=== PATIENT | female | born 1955 | race Caucasian/White ===

== ENCOUNTER → 2023-01-20 | Outpatient (CLI) | payer MEDICARE, OTHER, SELFPAY ==
[2023-01-20 17:24] LABS: Erythrocyte Sedimentation Rate 13 mm/hr (0-30)
[2023-01-20 18:00] LABS: AST(SGOT) 37 U/L (15-37); Alanine Aminotransfer ALT/SGPT 37 U/L (13-56); Albumin, Serum 3.9 g/dL (3.2-5.0); Alkaline Phosphatase 135 U/L (45-117); Anion Gap 6 (5-15); BUN 14 mg/dL (7-18); BUN/Creat Ratio 23.4 RATIO (10-20); Calcium,Total 9.9 mg/dL (8.5-10.1); Chloride 104 mmol/L (98-107); EST Glomerular Filtration Rate 107 mL/min (>60); Est Glom Filt Rate - Afr Amer 129 mL/min (>60); Globulin 3.8 g/dL (2.2-4.2); Glucose 86 mg/dL (74-106); Potassium 3.8 mmol/L (3.5-5.1); Protein, Total 7.7 g/dL (6.4-8.2); Sodium Level 138 mmol/L (136-145)
[2023-01-23 13:07] LABS: Anti-Centromere B Ab <0.2 AI (0.0-0.9); Anti-Chromatin <0.2 AI (0.0-0.9); Anti-Jo <0.2 AI (0.0-0.9); Anti-Scleroderma-70 AB <0.2 AI (0.0-0.9); Anti-dsDNA Ab <1 IU/mL (0-9); RNP Ab <0.2 AI (0.0-0.9); SJOGREN'S Anti-SS-A test < 0.2 AI (0.0-0.9); SJOGREN'S Anti-SS-B test < 0.2 AI (0.0-0.9); Smith Ab <0.2 AI (0.0-0.9)
[2023-01-23 16:08] LABS: Endomysial Antibody IgA Negative (Negative); Immunoglobulin A 156 mg/dL (87-352); t-Transglutaminase IgA <2 U/mL (0-3)
[2023-01-26 12:09] LABS: Albumin 3.8 g/dL (2.9-4.4); Alpha-1-Globulins 0.3 g/dL (0.0-0.4); Alpha-2-Globulins 0.9 g/dL (0.4-1.0); Carcinoembryonic Antigen 3.6 ng/mL (0.0-4.7); Cytoplasmic Ab (C-ANCA) <1:20 titer (Neg:<1:20); Gamma Globulin 0.9 g/dL (0.4-1.8); Gastrin, Serum 17 pg/mL (0-115); Immunoglobulin A 155 mg/dL (87-352); Immunoglobulin E 11 IU/mL (6-495); Immunoglobulin G 791 mg/dL (586-1602); Immunoglobulin M 152 mg/dL (26-217); PROEL- TOTAL PROTEIN 6.9 g/dL (6.0-8.5); Perinuclear Ab (P-ANCA) <1:20 titer (Neg:<1:20)
== END | disposition home or self-care (01) ==
PROVIDERS: PCP Family Medicine; Referring Provider Internal Medicine Gastroenterology; Visit Provider Internal Medicine Gastroenterology
DX: K56.609 Unspecified intestinal obstruction, unspecified as to partial versus complete obstruction (principal); Z85.038 Personal history of other malignant neoplasm of large intestine
CPT/HCPCS: 36415; 80053; 82378; 82784; 82785; 82941; 83516; 84165; 85652; 86140; 86225; 86235; 86255; 86256; 86334

== ENCOUNTER → 2023-02-21 | Outpatient (CLI) | payer MEDICARE, OTHER, SELFPAY ==
--- NOTE | 2023-02-21 11:57 | MRI_ITS ---
STUDY: MR ENTEROGRAPHY WITH CONTRAST REASON FOR EXAM: Female, 67 years old. K56.609 - Unspecified intestinal obstruction, unspecified as t... TECHNIQUE: Multipulse sequence MRI performed with IV contrast according to standard MR enterography protocol following administration of oral contrast for maximal bowel distention. Images were obtained from the dome of the diaphragm to the symphysis pubis. IV clariscan 10ml was administered intravenously. TECHNICAL QUALITY: Image Quality: Satisfactory Small Bowel Distension: Adequate. COMPARISON: None. FINDINGS: Bowel: Bowel wall thickening: Absent. Skip lesions: None. Vascularity: Normal. Enhancement: Normal. Fistula: None. Abscess: None. Other Findings: The lung bases are unremarkable. The visualized portions of the heart are within normal limits Normal liver. Normal gallbladder and extrahepatic biliary system. Normal spleen. Normal pancreas. Normal bilateral adrenal glands. Normal right kidney. Normal left kidney. Normal visualized stomach. Normal colon. The appendix is not visualized. There is no evidence of bowel obstruction. No bowel masses are seen. Oral contrast opacifies the stomach and the large and small bowel loops. Normal abdominal aorta. Normal interior vena cava. Normal retroperitoneum. Normal urinary bladder. Normal abdominal wall. Unremarkable osseous structures. MRI/Enterography Abd/Pel IMPRESSION: 1. Normal MR enterography. 2. Normal visualized stomach. Normal colon. The appendix is not visualized. There is no evidence of bowel obstruction. No bowel masses are seen. Oral contrast opacifies the stomach and the large and small bowel loops. Electronically Signed: Alexander Presley MD at 15:35 EDT ,
[2023-02-21 11:58] VITALS: BP 144/61; PULSE 49; RESP 16; O2SAT 98
[2023-02-21] MEDS: Glucagon 1 MG/ML Syringe IV (14:00)
[2023-02-21 14:20] VITALS: BP 133/73; PULSE 52; RESP 16; O2SAT 98
== END | disposition home or self-care (01) ==
LOC: MRI 11:28
PROVIDERS: PCP Family Medicine; Referring Provider Internal Medicine Gastroenterology; Visit Provider Internal Medicine Gastroenterology
DX: K56.609 Unspecified intestinal obstruction, unspecified as to partial versus complete obstruction (principal); Z85.038 Personal history of other malignant neoplasm of large intestine
CPT/HCPCS: 74183; 96374; A9575; J1610

== ENCOUNTER → 2023-07-27 | Outpatient (CLI) | payer MEDICARE, OTHER, SELFPAY ==
--- NOTE | 2023-07-27 14:10 | RAD_ITS ---
EXAM: XR ABDOMEN, 1 VIEW CLINICAL INDICATION: Agile capsule TECHNIQUE: Frontal supine view of the abdomen/pelvis. COMPARISON: MR enterography, 02/21/2023. FINDINGS: LOWER THORAX: No acute pathology. INTRAPERITONEAL SPACE: No free air is identified. GASTROINTESTINAL TRACT: The capsule is in the mid to lower pelvis projecting over the region of the mid sacrum. Mild to moderate colonic stool and gas. No bowel obstruction. ORGANS: Normal as visualized. No organomegaly. No abnormal calcifications. BONES/JOINTS: [place] left scoliotic curvature of the spine and degenerative changes of the spine, SI joints, and hips. SOFT TISSUES: Surgical clip in the left hemiabdomen. RAD/Abdomen Single View IMPRESSION: 1. The capsule is in the mid to lower pelvis projecting over the region of the mid sacrum. 2. Mild to moderate colonic stool and gas. No bowel obstruction. Electronically Signed: Juan Martino DO at 20:15 EST ,
== END | disposition home or self-care (01) ==
LOC: RAD 14:05
PROVIDERS: PCP Family Medicine; Referring Provider Internal Medicine Gastroenterology; Visit Provider Internal Medicine Gastroenterology
DX: K56.609 Unspecified intestinal obstruction, unspecified as to partial versus complete obstruction (principal)
CPT/HCPCS: 74018

== ENCOUNTER → 2023-09-13 | Outpatient (CLI) | payer MEDICARE, OTHER, SELFPAY ==
--- OUTSIDE RECORDS SUMMARY | 2023-09-13 19:06 | XMS RPT_ITS | CCD ---
Author Name Unknown Address [address] [place] [address] Organization [facility] Care Team Providers Care Spinner Box Name Role Phone PAGE RENEE, DR BEN Savage Primary Care Physician Arsenio PT, Ruthann Unavailable Unavailable GIUSEPPE YI, LUIGI Cooper Admitting Unavai boni UGARTE MD FACP, ASHLEE Davis Attending Unavail sunny UGARTE MD FACP, ASHLEE Davis Consulting Unavail able DR BEN ABEL DO Primary Care Unavailabl e Allergies Allergy Classification Reported Allergen(s) Allergy Type Date of Onset Reaction(s) Facility (1 source) Erythromycin; Translations: [erythromycin] Drug Allergy Nausea and vomiting [facility] Work Phone: Medications Current Medications Medication Drug Class(es) Dates Sig (Normalized) Sig (Original) biotin 1 mg oral tablet (1 source) Start: 01-02-2014 biotin 1000 mcg oral tablet Dose : 1,000 mcg = 1 tab(s), Oral, qDay, 0 Refill(s) Start Date: 01/02/14 Status: Ordered escitalopram 10 mg oral tablet (1 source) Serotonin Reuptake Inhibitor Start: 06-09-2021 take 1 tablet by mouth once daily escitalopram 10 mg oral tablet See Instructions, TAKE 1 TABLET BY MOUTH EVERY DAY, # 90 tab(s), 3 Refill(s), Pharmacy: [facility]/pharmacy #[id number], 167.6, cm, 05/06/21 9:20:00 EDT, Height, kg, 05/06/21 9:20:00 EDT, Dosing Weight Start Date: 06/09/21 Status: Ordered Multivitamin preparation (1 source) Start: 01-02-2014 take 1 tablet by mouth once daily Multivitamin Dose = 1 tab(s), Oral, qDay, 0 Refill(s) Start Date: 01/02/14 Status: Ordered naproxen 250 mg oral tablet (1 source) Nonsteroidal Anti-inflammatory Drug Start: 11-18-2020 naproxen 250 mg oral tablet Dose : 250 mg = 1 tab(s), Oral, BID, PRN as needed for pain, # 20 tab(s), 0 Refill(s) Start Date: 11/18/20 Status: Ordered SUMAtriptan 50 mg oral tablet (1 source) Serotonin-1b and Serotonin-1d Receptor Agonist Start: 07-09-2021 take 1 tablet by mouth every two hours, then take 4 tablets by mouth every twenty-four hours SUMAtriptan 50 mg oral tablet See Instructions, TAKE 1 TAB AT ONSET OF HEADACHE MAY REPAT IN 2 HRS MAX 4 TABS IN 24 HRS, # 9 tab(s), 5 Refill(s), Pharmacy: [facility]/pharmacy #[id number], 168, cm, 07/09/21 14:18:00 EST, Height, kg, 07/09/21 14:18:00 EST, Dosing Weight Start Date: 07/09/21 Status: Ordered Completed/Discontinued Medications Medication Drug Class(es) Dates Sig (Normalized) Sig (Original) acetaminophen 325 mg / oxyCODONE hydrochloride 5 mg oral tablet (3 sources) Opioid Agonist Start: 07-09-2021 End: 08-06-2021 take 1 tablet by mouth three times daily as needed for pain acetaminophen-oxyC ODONE 325 mg-5 mg oral tablet Dose = 1 tab(s), Oral, TID, PRN for pain, fill 09/22/21, # 84 tab(s), 0 Refill(s), Pharmacy: [facility]/pharmacy #[id number], Fibromyalgia, secondary, 168, cm, 07/09/21 14:18:00 EST, Height, 58.1, kg, 07/09/21 14:18:00 EST, Dosing Weight Start Date: 07/09/21 Stop Date: 08/06/21 Status: Ordered Amphetamine / Dextroamphetamine (3 sources) Central Nervous System Stimulant Start: 07-09-2021 End: 08-06-2021 amphetamine-dextro amphetamine 15 mg oral capsule, extended release Dose : 15 mg = 1 cap(s), Oral, qAM, fill 09/22/21, # 28 cap(s), 0 Refill(s), Pharmacy: [facility]/pharmacy #[id number], ADHD, predominantly inattentive type, 168, cm, 07/09/21 14:18:00 EST, Height, 58.1, kg, 07/09/21 14:18:00 EST, Dosing Weight Start Date: 07/09/21 Stop Date: 08/06/21 Status: Ordered Problems Problem Classification Problem Date Documented Da te Episodic/Chronic Abdominal pain (2 sources) Abdominal pain; Translations: [Periumbilical pain] 06-21-2019 Episodic Anxiety disorders (1 source) Generalized anxiety disorder 05-03-2019 Chronic Attention-deficit, conduct, and disruptive behavior disorders (1 source) Attention deficit hyperactivity disorder, 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 Cancer of colon (1 source) History of malignant neoplasm of colon 06-21-2019 Episodic Headache; including migraine (1 source) Migraine without aura 07-09-2021 Chronic Intestinal obstruction without hernia (1 source) Small bowel obstruction 05-03-2019 Episodic Results Test Name Value Interpretation Reference Range Facil ity Vital Signs Date Time Vital Sign Value Performing Clinician Faci lity 09-27-2021 06:07-0500 Body temperature 96.98 [degF] SOHAM JONES MD [facility] 09-27-2021 06:07-0500 Diastolic blood pressure 87 mm[Hg] SOHAM JONES MD [facility] 09-27-2021 06:07-0500 Heart rate 53 /min SOHAM JONES MD [facility] 09-27-2021 06:07-0500 Mean blood pressure 120 mm[Hg] SOHAM JONES MD [facility] 09-27-2021 06:07-0500 Respiratory rate 18 /min SOHAM JONES MD [facility] 09-27-2021 06:07-0500 Systolic blood pressure 185 mm[Hg] SOHAM JONES MD [facility] Encounters Encounter Date Encounter Type Care Provider Facility Start: 08-26-2022 End: 08-28-2022 Evaluation and management of inpatient LUIGI CHIN SOLDER TECHNICIAN-REPORT SPECIALIST Facility:B Start: 09-27-2021 End: 09-27-2021 Emergency department patient visit SOHAM JONES MD [facility] Procedures Date Procedure Procedure Detail Performing Clinician Start: 08-07-1980 Oophorectomy SOHAM Negron MD Immunizations Immunization Date Immunization Notes Care Provider Fa cility 08-17-2021 SARS-CoV-2 mRNA (tozinameran) vaccine SOHAM JONES MD [facility] 05-07-2021 influenza, injectabl e, quadrivalent, preservative free; Translations: [Fluarix PF Quadrivalent ] SOHAM JONES MD [facility] 12-06-2020 SARS-CoV-2 mRNA (tozinameran) vaccine SOHAM JONES MD [facility] 11-15-2020 SARS-CoV-2 mRNA (tozinameran) vaccine SOHAM JONES MD [facility] 05-21-2018 influenza virus vacc ine, unspecified formulation SOHAM JONES MD [facility] 07-19-2017 influenza virus vacc ine, unspecified formulation SOHAM JONES MD [facility] 07-19-2017 tetanus toxoid, redu lori diphtheria toxoid, and acellular pertussis vaccine, adsorbed SOHAM JONES MD [facility] 06-07-2016 influenza virus vacc ine, unspecified formulation SOHAM JONES MD [facility] 06-25-2015 influenza virus vacc ine, unspecified formulation SOHAM JONES MD [facility] 06-13-2014 influenza virus vacc ine, unspecified formulation SOHAM JONES MD [facility] Payers Date Payer Category Payer Medicare [id number] 2022 Private Health Insurance [facility] [id number] 1955 Unknown [id number] Social History Date Type Detail Facility Start: 05-03-2019 Ex-smoker (finding) [facility] Hospital Discharge instructions 09-27-2021 Note Date & Type Note Facility 09-27-2021 Hospital Discharg e instructions Patient Education 09/27/2021 06:41:46 Small Bowel Obstruction Small Bowel Obstruction Small bowel obstruction can lead to tissue damage and even tissue . A small bowel obstruction occurs when part or all of the small intestine (bowel) is blocked. As a result, digestive contents can t move through the bowel properly and out of the body. Treatment is needed right away to remove the blockage. This can ease painful symptoms. It can also prevent serious problems, such as tissue or bursting (rupture) of the small bowel. Without treatment, a small bowel obstruction can be fatal. Causes of small bowel obstruction A small bowel obstruction can be caused by: Scar tissue (adhesions). These may form after belly (abdominal) surgery or an infection. Hernia. A hernia is when an organ pushes through a weak spot or tear in the abdomen wall. Part of the small bowel can push out and be seen as a bulge under the belly. Hernias can also occur internally. Certain health problems. These include when part of the bowel slides inside another part (intussusception). Other causes include irritable bowel disease such as Crohn s disease, and inflammation and sores in the intestine (ulcerative colitis). Abnormal tissue growths (tumors). These can form on the inside or outside of the small bowel. They are usually due to cancer. Symptoms of small bowel obstruction Common symptoms include: Belly cramping and pain Belly swelling and bloating Upset stomach (nausea) and vomiting Can't pass gas Can't pass stool (constipation) Diarrhea Diagnosing small bowel obstruction Your provider will ask about your symptoms and health history. You ll also have a physical exam. Tests may also be done to confirm the problem. These can include: Imaging tests. These provide pictures of the small bowel. Common tests include X-rays and a CT scan. Blood tests. These check for infection and other problems, such as excess fluid loss (dehydration). Upper GI (gastrointestinal) series with a small bowel follow-through. This test takes X-rays of the upper digestive tract from the mouth through the small bowel. An X-ray dye (contrast fluid) is used. The dye coats the inside of your upper digestive tract so it will show up clearly on X-rays. Treating small bowel obstruction Treatment takes place in a hospital. As part of your care, the following may be done: No food or drink is given by mouth. This allows your bowels to rest. An IV (intravenous) line is placed in a vein in your arm or hand. The IV line is used to give fluids. It may also be used to give medicines. These may be needed to ease pain, nausea, and other symptoms. They may also be needed to treat or prevent infections. A soft, thin, flexible tube (nasogastric tube) is inserted through your nose and into your stomach. The tube is used to remove extra gas and fluid in your stomach and bowels. This helps to ease symptoms such as pain and swelling. In severe cases, surgery is done. This may be needed if the small bowel is almost or totally blocked, or there is a hole in the bowel (bowel perforation). During surgery, the blockage is removed. Parts of the bowel may also be removed if there is tissue . Other repair may be done as well, depending on what caused the blockage. Your healthcare provider will give you more information about surgery, if needed. You ll be watched closely in the hospital until your symptoms improve. Your provider will tell you when you can go home. Long-term concerns After treatment, most people recover with no lasting effects. If a long part of the bowel is removed, there is a greater chance for lifelong digestive problems. Bowel movements may become irregular. Work with your provider to learn the best ways to manage any symptoms you may have, and to protect your health. When to call your healthcare provider Call your provider right away if you have any of the following: Severe pain (call 911) Belly swelling or cramping that won t go away Can t pass stool or gas Nausea or vomiting (especially if the vomit looks or smells like stool) [id number] [employer]. [address] [place] [address]. All rights reserved. This information is not intended as a substitute for professional medical care. Always follow your healthcare professional's instructions. Follow Up Care 09/27/2021 05:59:07 With:BEN ABEL DO Address: [phone] When:2-4 days [facility] Evaluation + Plan note LaboratoryRadiology Note Date & Type Note Facility Evaluation + Plan note Future Appointments Appointment Date:10/14/2021 01:45:00 PM Scheduled Provider:BEN ABEL DO Location:[facility] Appointment Type: OV Controlled Medication Future Scheduled TestsComplete Metabolic Panel 05/13/21MA Mammo Screening Bilateral w/ Sushil 11/18/20 [facility] Hospital course Narrative Note Date & Type Note Facility Hospital course Narrative No data available for this section [facility] Summary Purpose Family History No Family History Records FoundNo Family History Records FoundNo Family History Records Found Advance Directives No Advanced Directives Records FoundNo Advanced Directives Records FoundNo Advanced Directives Records Found Additional Source Comments INFORMATION SOURCE (unrecogn ized section and content) DATE CREATED AUTHOR AUTHOR'S ORGANIZ ATION 07/13/2019 [facility] DATE CREATED AUTHOR AUTHOR'S ORGANIZ ATION 01/14/2023 [facility] ([place]) FOR RECORDS PERTAINING TO PATIENTS WHO ARE OR HAVE BEEN ENROLLED IN A CHEMICAL DEPENDENCY/SUBSTANCEABUSE PROGRAM, SOME INFORMATION MAY BE OMITTED. This clinical summary was aggregated from multiple sources. Caution should be exercised in using it in the provision of clinical care. This summary normalizes information from multiple sources, and as a consequence, information in this document may materially change the coding, format and clinical context of patient data. In addition, data may be omitted in some cases. CLINICAL DECISIONS SHOULD BE BASED ON THE PRIMARY CLINICAL RECORDS. [facility] [employer] [facility]. provides no warranty or guarantee of the accuracy or completeness of information in this document.
[2023-09-19 22:06] LABS: Pancreatic Elastase, Fecal 50 (>200)
== END | disposition home or self-care (01) ==
PROVIDERS: PCP Family Medicine; Referring Provider Internal Medicine Gastroenterology; Visit Provider Internal Medicine Gastroenterology
DX: K52.9 Noninfective gastroenteritis and colitis, unspecified (principal)
CPT/HCPCS: 82274; 82653; 82705; 83630; 83986; 83993; 87177; 87209; 87329; 87493; 87506

== ENCOUNTER → 2023-09-15 | Outpatient (CLI) | payer MEDICARE, OTHER, SELFPAY ==
[2023-09-22 16:09] LABS: Calprotectin, Stool 26 ug/g (0-120); Fats, Neutral Increased (.); Fats, Total Increased (.)
[2023-09-23 00:06] LABS: Pancreatic Elastase, Fecal < 50 (>200)
== END | disposition home or self-care (01) ==
PROVIDERS: PCP Family Medicine; Referring Provider Internal Medicine Gastroenterology; Visit Provider Internal Medicine Gastroenterology
DX: K58.9 Irritable bowel syndrome, unspecified (principal)
CPT/HCPCS: 82653; 82705; 83993

== ENCOUNTER 2023-09-27 07:13 | Day surgery (SDC) | payer MEDICARE, OTHER, SELFPAY ==
--- OUTSIDE RECORDS SUMMARY | 2023-09-27 07:16 | XMS RPT_ITS | CCD ---
Author Name Unknown Address [address] [place] [address] Organization [facility] Care Team Providers Care Air Conditioning Mechanic Name Role Phone DR BEN ABEL DO Primary Care Physician [phone] Ruthann Cesar PT Unavailable Unavailable DR BEN ABEL DO Primary Care Unavailderrick CASAS DO, SAMMIE Consulting Unavailable ONEL RENEE, POPPY Attending Unavailable Allergies Allergy Classification Reported Allergen(s) Allergy Type Date of Onset Reaction(s) Facility (1 source) Erythromycin; Translations: [erythromycin] Drug Allergy Nausea and vomiting [facility] Work Phone: Medications Current Medications Medication [...] DAY, # 90 tab(s), 3 Refill(s), Pharmacy: [facility]/pharmacy #[id number], 167.6, cm, 05/06/21 9:20:00 EDT, Height, kg, 05/06/21 9:20:00 EDT, Dosing Weight Start Date: 06/09/21 Status: Ordered Multivitamin preparation (1 source) Start: 01-02-2014 take 1 tablet by mouth once daily Multivitamin Dose = 1 tab(s), Oral, qDay, 0 Refill(s) Start Date: 5/29/14 Status: Ordered naproxen 250 mg oral tablet [...] HRS, # 9 tab(s), 5 Refill(s), Pharmacy: [facility]/pharmacy #[id number], 168, cm, 07/09/21 14:18:00 EST, Height, [...] 09/22/21, # 84 tab(s), 0 Refill(s), Pharmacy: [facility]/pharmacy #[id number], Fibromyalgia, secondary, 168, cm, 07/09/21 14:18:00 EST, Height, 58.1, kg, 07/09/21 14:18:00 EST, Dosing Weight Start Date: 07/09/21 Stop Date: 08/06/21 Status: Ordered Amphetamine / Dextroamphetamine (3 sources) Central Nervous System Stimulant Start: 07-09-2021 End: 08-06-2021 amphetamine-dextro amphetamine 15 mg oral capsule, extended release Dose : 15 mg = 1 cap(s), Oral, qAM, fill 09/22/21, # 28 cap(s), 0 Refill(s), Pharmacy: [facility]/pharmacy #[id number], ADHD, predominantly inattentive type, 168, cm, 07/09/21 [...] Body temperature 96.98 [degF] SOHAM JONES MD [facility] 09-27-2021 06:07-0500 Diastolic blood pressure 87 mm[Hg] SOHAM JONES MD [facility] 09-27-2021 06:07-0500 Heart rate 53 /min SOHAM JONES MD [facility] 09-27-2021 06:07-0500 Mean blood pressure 120 mm[Hg] SOHAM JONES MD [facility] 09-27-2021 06:07-0500 Respiratory rate 18 /min SOHAM JONES MD [facility] 09-27-2021 06:07-0500 Systolic blood pressure 185 mm[Hg] SOHAM JONES MD [facility] Encounters Encounter Date Encounter Type Care Provider Facility Start: 09-16-2023 End: 09-16-2023 Emergency department patient visit DR BEN ABEL DO Facility:B Start: 09-27-2021 End: 09-27-2021 Emergency department patient visit SOHAM JONES MD [facility] Procedures Date Procedure Procedure Detail Performing Clinician Start: 08-07-1980 Oophorectomy SOHAM Negron MD Immunizations Immunization Date Immunization Notes Care Provider Fa cility 08-17-2021 SARS-CoV-2 mRNA (tozinameran) vaccine SOHAM JONES MD [facility] 05-07-2021 influenza, injectabl e, quadrivalent, preservative free; Translations: [Fluarix PF Quadrivalent ] SOHAM JONES MD [facility] 12-06-2020 SARS-CoV-2 mRNA (tozinameran) vaccine SOHAM JONES MD [facility] 11-15-2020 SARS-CoV-2 mRNA (tozinameran) vaccine SOHAM JONES MD [facility] 05-21-2018 influenza virus vacc ine, unspecified formulation SOHAM JONES MD [facility] 07-19-2017 influenza virus vacc ine, unspecified formulation SOHAM JONES MD [facility] 07-19-2017 tetanus toxoid, redu lori diphtheria toxoid, and acellular pertussis vaccine, adsorbed SOHAM JONES MD [facility] 06-07-2016 influenza virus vacc ine, unspecified formulation SOHAM JONES MD [facility] 06-25-2015 influenza virus vacc ine, unspecified formulation SOHAM JONES MD [facility] 06-13-2014 influenza virus vacc ine, unspecified formulation SOHAM JONES MD [facility] Payers Date Payer Category Payer Medicare [id number] 2023 Private Health Insurance CLI [id number] 1955 Unknown [id number] Social History Date Type Detail Facility Start: 05-03-2019 Ex-smoker (finding) [facility] Clinical Note 09-17-2023 Note Date & Type Note Facility 09-17-2023 Note . MICRO - Microbiology PROCEDURE: Urine Culture [*1] SOURCE: Urine, Clean Catch BODY SITE: COLLECTED DATE/TIME: 09/16/2023 10:52 EST RECEIVED DATE/TIME: 09/16/2023 16:38 EST START DATE/TIME: 09/16/2023 16:38 EST FREE TEXT SOURCE: FINAL REPORTS Final Report [] Verified Date/Time/Personnel: 09/17/2023 14:02 EST >100,000 cfu/ml Mixed growth consistent with normal urogenital miguel. Performing Locations *1: This test was performed at: [facility], [address] [place] [address], [address] [place] [address] ([place]) Hospital Discharge instructions 09-27-2021 Note Date & [...] the vomit looks or smells like stool) [id number] [employer]. [address] [place] [address]. All rights reserved. This information is not intended as a substitute for professional medical care. Always follow your healthcare professional's instructions. Follow Up Care 09/27/2021 05:59:07 With:BEN ABEL DO Address: [phone] When:2-4 days [facility] Evaluation + Plan note LaboratoryRadiology Note Date & Type Note Facility Evaluation + Plan note Future Appointments Appointment Date:10/14/2021 01:45:00 PM Scheduled Provider:BEN ABEL DO Location:[facility] Appointment Type:PC OV Controlled Medication Future Scheduled TestsComplete Metabolic Panel 05/13/21MA Mammo Screening Bilateral w/ Sushil 11/18/20 [facility] Hospital course Narrative Note Date & Type Note Facility Hospital course Narrative No data available for this section [facility] Summary Purpose Family History No Family History Records FoundNo Family History Records FoundNo Family History Records Found Advance Directives No Advanced Directives Records FoundNo Advanced Directives Records FoundNo Advanced Directives Records Found Additional Source Comments INFORMATION SOURCE (unrecogn ized section and content) DATE CREATED AUTHOR AUTHOR'S JEFFRYNICOL ATION 07/13/2019 [facility] DATE CREATED AUTHOR AUTHOR'S ORGANNICOL ATION 09/21/2023 [facility] jere ([place]) FOR RECORDS PERTAINING TO PATIENTS WHO ARE [...] BE BASED ON THE PRIMARY CLINICAL RECORDS. [facility]. provides no warranty or guarantee of the accuracy or completeness of information in this document.
[2023-09-27 07:29] VITALS: BP 127/63; PULSE 60; RESP 18; TEMP 36.3; O2SAT 98; BMI 19.0
[2023-09-27] MEDS: Lactated Ringers 1,000 ML 15 ML IV (07:42)
--- NOTE | 2023-09-27 07:43 | PCM.HP.BLA ---
History and Physical Date of Admission: 09/27/23 REI CABAN, is a 67 F who presents to the office today for PMH ADHD; anxiety; depression; fibromyalgia. [facility] established until he retired. [facility] hospitalization 08.26.22-08.28.22 with small bowel obstruction versus ileus s/p bowel rest and IVF. CT abd/pel 08.26.22 small hiatal hernia with wall thickening which is new; small amount of pelvic fluid; rectal anastomosis; mildly dilated small bowel throughout pelvis and into distal portion of ileum; gastric distention with wall thickening. PCP OV 10.17.22 as routine OV for chronic health issues. GI issues include recurrent SBO requiring hospitalization (she estimates approximately 10 SBO); notes history of colon cancer s/p chemotherapy and radiation, Stage 2-3 ? Biochemical CBC, CMP without pertinent abnormality. *[facility] established 01.20.23 colorectal cancer near rectum stage 2-3 with minimal invasion into soft tissue s/p surgical resection near rectum 2012ish with Ileostomy placement with reversal six weeks later. She had chemotherapy and radiation. Reports 14 SBO since surgery; in various areas throughout her small bowel, but may also be occurring near ileostomy site. ? Biochemical ESR, CMP, BLANCHE comp, ANCA, CEA, celiac, gastrin, GAME, TOD, IBD without pertinent abnormality. ? AST 37-ALT 37-AP H135, CRP H19.4 ? MREnterography 02.22.23 WNL Contact, VM 03.07.23 with enterography results. OV 06.05.23 doing well without SBO since LV. BM vary between loose stools and hard stool. Since establishing with this clinic she had decreased caliber and softer stools and occurs typically postprandially; because of this she will avoid eating if there are certain activities during her day. Tries to eat softer foods with smaller quantities. ROS Const Constitutional: No anorexia, fatigue, fever(s), weight change or sleep problems Eyes Eyes: No change in vision ENT ENT: No abnormal hearing, difficulty swallowing, mouth lesions, tongue swelling or throat swelling Resp Respiratory: No cough or shortness of breath Cardio Cardiology: No chest pain at rest, chest pain with exertion, shortness of breath or dyspnea on exertion Gastro GI: No difficulty swallowing Genitourinary-Female: No difficulty urinating or burning urination Musc Musculoskeletal: No joint pain, joint swelling, muscle weakness or decreased muscle mass Skin Skin: No hair loss in leg, yellowing of the eye, itchy eyes, rash, skin ulcer or skin swelling Neuro Neurology: No abnormal hearing, abnormal movements, confusion, unsteady gait/balance or memory loss Psych Psychiatric: No anxiety, No confusion and No memory loss Endo Endocrine: No fatigue or weight change Aller/Imm Allergy/Immunologic: No itchy eyes, throat swelling or tongue swelling Errol/Lymp Hematologic/Lymphatic: No easy bleeding, easy bruising or enlarged lymph nodes Exam Const General: cooperative and comfortable Nutritional Appearance: average body habitus and well nourished HENMT Head: normal to inspection Ears: hearing grossly normal bilaterally Nose: external nose normal Face and sinus: normal facial exam Mouth: oral mucosae normal Throat: posterior oropharynx normal Eyes General: appearance normal, both eyes and all related structures Neck Neck: normal visual inspection Chest Chest palpation & inspection: normal inspection of the chest and normal palpation of entire chest wall Resp Effort & Inspection: normal respiratory effort Auscultation: Bilateral: Clear to Auscultation Cardio Palpation: normal PMI Rate: regular rate Rhythm: regular rhythm GI Inspection: normal to inspection Auscultation: normal bowel sounds Percussion: normal to percussion Palpation: no hepatosplenomegaly Skin General: no rashes or lesions noted Neuro General: patient alert Extrem General: normal to inspection Psych Affect: normal affect Quality Reporting Tobacco Screening ([facility] 138) Smoking Status: Former smoker Assessment and Plan Assessment and Plan (1) Intestinal obstruction: Status: Chronic Qualifiers: Intestinal obstruction type: unspecified Intestinal obstruction extent: unspecified extent Qualified Code(s): K56.609 - Unspecified intestinal obstruction, unspecified as to partial versus complete obstruction Plan: Differential diagnosis for her multiple small bowel obstructions are radiation-induced enteritis, adhesions, intermittent volvulus or intussusception of the bowel. She will undergo an MRI enterography and also biochemical testing for any associated vasculitis or inflammatory bowel disease. She will undergo patency capsule study. (2) History of malignant neoplasm of colon: Status: Chronic Plan: She had a surveillance colonoscopy because of her history of rectal cancer about 3 years ago. She will need a repeat colonoscopy in the future for surveillance purposes.
--- NOTE | 2023-09-27 08:15 | COLBX_PTH ---
PATHOLOGY RESULTS PATIENT: REI CABAN LOC: EN U#:[id number] AGE/SX: 68/F ROOM: RE09/27/[address]: Dr. Good Rios DO : 1955 BED: DIS: 09/27/2023 SPEC #: [id number] RECD: 09/27/23 11:05 STATUS: LARISA SON #: [id number] OLIVIA: 09/27/23 08:[address]: Good Rios DEPT: SURGICAL PATHOLOGY RECD BY: Marisela Bustillo ENTERED: 09/27/23 11:07 SP TYPE: COLON BX OTHR DR: Dr. Enoch Castro DO Tissues: Duodenum, NOS Transverse colon COLON BIOPSY Procedures: Surgery Specimen Level IV HEADER OPERATION: Colonoscopy with polypectomy, EGD with biopsy PRE-OP DIAGNOSIS: Intestinal obstruction, history of malignant neoplasm of colon TISSUE SUBMITTED: A - Duodenum biopsy, B - Transverse colon polyp, C - Anastomosis biopsy MICROSCOPIC DIAGNOSIS A. Duodenum, biopsy: No pathologic change. B. Transverse colon polyp, biopsy: Fragments of hyperplastic polyp. C. Anastomosis biopsy: Hyperplastic polyp. AM:kaden 09/28/2023 MICROSCOPIC DESCRIPTION Slides are reviewed. GROSS DESCRIPTION A - Received in fixative is one container labeled with the patient's name and designated duodenum biopsy. The specimen consists of multiple irregular fragments of light graham soft tissue that in aggregate measure 1.0 x 0.3 x 0.1 cm. The specimen is totally submitted in one cassette. B - Received in fixative is one container labeled with the patient's name and designated transverse colon polyp. The specimen consists of multiple irregular fragments of light graham soft tissue that in aggregate measure 0.6 x 0.3 x 0.1 cm. The specimen is totally submitted in one cassette. C - Received in fixative is one container labeled with the patient's name and designated anastomosis biopsy. The specimen consists of one irregular fragment of light graham soft tissue that measures 0.3 x 0.3 x 0.1 cm. The specimen is totally submitted in one cassette. / TAWANA:kaden 09/27/2023 TC:5 CPT: 39798 x3
[2023-09-27 08:45] VITALS: BP 127/63; BP 93/39; PULSE 67; RESP 16; TEMP 36.7; O2SAT 100
--- NOTE | 2023-09-27 08:46 | OP.EGD_ITS ---
Patient Name: Teresa Miller Procedure Date: 09/27/2023 8:04 AM Date of : 1955 Age: 68 Procedure: Upper GI endoscopy Indications: Epigastric abdominal pain, Functional Dyspepsia Providers: Good Rios DO Referring MD: Enoch Castro Medicines: Monitored Anesthesia Care Patient Profile: This is a 68 year old female. Refer to note in patient chart for documentation of history and physical. Patient has symptoms of chronic abdominal cramping and chronic epigastric abdominal pain. Complications: No immediate complications. Procedure: Pre-Anesthesia Assessment: - Prior to the procedure, a History and Physical was performed, and patient medications and allergies were reviewed. The patient is competent. The risks and benefits of the procedure and the sedation options and risks were discussed with the patient. All questions were answered and informed consent was obtained. Patient identification and proposed procedure were verified by the physician in the pre-procedure area. Mental Status Examination: alert and oriented. Airway Examination: normal oropharyngeal airway and neck mobility. Respiratory Examination: clear to auscultation. CV Examination: normal. Prophylactic Antibiotics: The patient does not require prophylactic antibiotics. Prior Anticoagulants: The patient has taken no anticoagulant or antiplatelet agents. ASA Grade Assessment: II - A patient with mild systemic disease. After reviewing the risks and benefits, the patient was deemed in satisfactory condition to undergo the procedure. The anesthesia plan was to use monitored anesthesia care (MAC). Immediately prior to administration of medications, the patient was re-assessed for adequacy to receive sedatives. The heart rate, respiratory rate, oxygen saturations, blood pressure, adequacy of pulmonary ventilation, and response to care were monitored throughout the procedure. The physical status of the patient was re-assessed after the procedure. After obtaining informed consent, the endoscope was passed under direct vision. Throughout the procedure, the patient's blood pressure, pulse, and oxygen saturations were monitored continuously. The Colonoscope was introduced through the mouth, and advanced to the second part of duodenum. The upper GI endoscopy was accomplished without difficulty. The patient tolerated the procedure well. Scope In: 8:18:45 AM Scope Out: 8:22:41 AM Total Procedure Duration Time 0 hours 3 minutes 56 seconds Findings: The examined esophagus was normal. A small hiatal hernia was present. Diffuse mildly erythematous mucosa without bleeding was found in the gastric body. Patchy inflammation characterized by erosions, erythema and friability was found in the duodenal bulb. Biopsies were taken with a cold forceps for histology. Verification of patient identification for the specimen was done. Estimated blood loss was minimal. Impression: - Normal esophagus. - Small hiatal hernia. - Erythematous mucosa in the gastric body. - Bile duodenitis. Biopsied. Recommendation: - Discharge patient to home. - Resume previous diet. - Continue present medications. - Await pathology results. Procedure Code(s): --- Professional --- 29379, Esophagogastroduodenoscopy, flexible, transoral; with biopsy, single or multiple CPT copyright 2021 [employer]. All rights reserved. The codes documented in this report are preliminary and upon forms analyst review may be revised to meet current compliance requirements. Good Rios DO 09/27/2023 8:46:28 AM This report has been signed electronically. Number of Addenda: 0 Note Initiated On: 09/27/2023 8:04 AM
--- NOTE | 2023-09-27 08:47 | OP.CCLET_ITS ---
09/27/2023 Enoch Castro Re : Upper GI endoscopy procedure for Teresa Miller Sushmar Gloria This procedure was performed on Wednesday, September 27, 2023. My impressions and recommendations are as follows: Impressions : - Normal esophagus. - Small hiatal hernia. - Erythematous mucosa in the gastric body. - Bile duodenitis. Biopsied. Recommendations : - Discharge patient to home. - Resume previous diet. - Continue present medications. - Await pathology results. My findings are described in the full procedure note, which is enclosed. If I can be of further assistance, please feel free to contact me at . Sincerely, Good Rios, 09/27/2023 8:46:28 AM This report has been signed electronically.
[2023-09-27 08:50] VITALS: BP 127/63; BP 92/46; PULSE 66; RESP 16; O2SAT 100
--- NOTE | 2023-09-27 08:50 | OP.COLON_ITS ---
Patient Name: Teresa Miller Procedure Date: 09/27/2023 8:22 AM Date of : 1955 Age: 68 Procedure: Colonoscopy Indications: High risk colon cancer surveillance: Personal history of colon cancer Providers: Good Rios DO Referring MD: Enoch Castro Medicines: Monitored Anesthesia Care Patient Profile: This is a 68 year old female. Refer to note in patient chart for documentation of history and physical. Patient has symptoms of chronic abdominal cramping and chronic epigastric abdominal pain. Last Colonoscopy: 3 years ago. Complications: No immediate complications. Procedure: Pre-Anesthesia Assessment: - Prior to the procedure, a History and Physical was performed, and patient medications and allergies were reviewed. The patient is competent. The risks and benefits of the procedure and the sedation options and risks were discussed with the patient. All questions were answered and informed consent was obtained. Patient identification and proposed procedure were verified by the physician in the pre-procedure area. Mental Status Examination: alert and oriented. Airway Examination: normal oropharyngeal airway and neck mobility. Respiratory Examination: clear to auscultation. CV Examination: normal. Prophylactic Antibiotics: The patient does not require prophylactic antibiotics. Prior Anticoagulants: The patient has taken no anticoagulant or antiplatelet agents. ASA Grade Assessment: II - A patient with mild systemic disease. After reviewing the risks and benefits, the patient was deemed in satisfactory condition to undergo the procedure. The anesthesia plan was to use monitored anesthesia care (MAC). Immediately prior to administration of medications, the patient was re-assessed for adequacy to receive sedatives. The heart rate, respiratory rate, oxygen saturations, blood pressure, adequacy of pulmonary ventilation, and response to care were monitored throughout the procedure. The physical status of the patient was re-assessed after the procedure. After I obtained informed consent, the scope was passed under direct vision. Throughout the procedure, the patient's blood pressure, pulse, and oxygen saturations were monitored continuously. The Colonoscope was introduced through the anus and advanced to the cecum, identified by appendiceal orifice and ileocecal valve. The colonoscopy was performed without difficulty. The patient tolerated the procedure well. The quality of the bowel preparation was adequate. The ileocecal valve, appendiceal orifice, and rectum were photographed. Scope In: 8:25:03 AM Scope Withdrawal Time 0 hours 8 minutes 22 seconds Scope Out: 8:39:25 AM Total Procedure Duration Time 0 hours 14 minutes 22 seconds Findings: The perianal and digital rectal examinations were normal. There was evidence of a prior end-to-side colo-colonic anastomosis in the rectum. This was patent and was characterized by healthy appearing mucosa. The anastomosis was traversed. Biopsies were taken with a cold forceps for histology. Verification of patient identification for the specimen was done. Estimated blood loss was minimal. An 8 mm polyp was found in the transverse colon. The polyp was sessile. The polyp was removed with a hot snare. Resection and retrieval were complete. Verification of patient identification for the specimen was done. Estimated blood loss was minimal. The exam was otherwise without abnormality. Impression: - Patent end-to-side colo-colonic anastomosis, characterized by healthy appearing mucosa. Biopsied. - One 8 mm polyp in the transverse colon, removed with a hot snare. Resected and retrieved. - The examination was otherwise normal. Recommendation: - Discharge patient to home. - Resume previous diet. - Continue present medications. - Await pathology results. - Repeat colonoscopy for surveillance. Procedure Code(s): --- Professional --- 49919, Colonoscopy, flexible; with removal of tumor(s), polyp(s), or other lesion(s) by snare technique 46710, 59, Colonoscopy, flexible; with biopsy, single or multiple CPT copyright 2021 [employer]. All rights reserved. The codes documented in this report are preliminary and upon primer inserting machine adjuster review may be revised to meet current compliance requirements. Good Rios DO 09/27/2023 8:49:59 AM This report has been signed electronically. Number of Addenda: 0 Note Initiated On: 09/27/2023 8:22 AM
--- NOTE | 2023-09-27 08:50 | OP.CCLET_ITS ---
09/27/2023 Enoch Castro Re : Colonoscopy procedure for Teresa Miller Sushmar Gloria This procedure was performed on Wednesday, September 27, 2023. My impressions and recommendations are as follows: Impressions : - Patent end-to-side colo-colonic anastomosis, characterized by healthy appearing mucosa. Biopsied. - One 8 mm polyp in the transverse colon, removed with a hot snare. Resected and retrieved. - The examination was otherwise normal. Recommendations : - Discharge patient to home. - Resume previous diet. - Continue present medications. - Await pathology results. - Repeat colonoscopy for surveillance. My findings are described in the full procedure note, which is enclosed. If I can be of further assistance, please feel free to contact me at . Sincerely, Good Rios, 09/27/2023 8:49:59 AM This report has been signed electronically.
[2023-09-27 08:55] VITALS: BP 127/63; BP 95/43; PULSE 66; RESP 16; TEMP 36.3; O2SAT 100
[2023-09-27 09:12] VITALS: BP 127/63
== END 2023-09-27 09:20 | disposition home or self-care (01) ==
LOC: EN 07:13 → AC 07:14
PROVIDERS: PCP Family Medicine; Referring Provider Family Medicine; Visit Provider Internal Medicine Gastroenterology
PROC: 0DJD8ZZ Inspection of Lower Intestinal Tract, Via Natural or Artificial Opening Endoscopic (ICD-10-PCS; CPT 45378; principal; 2023-09-27 08:10)
DX: K63.5 Polyp of colon (principal); K56.609 Unspecified intestinal obstruction, unspecified as to partial versus complete obstruction; K44.9 Diaphragmatic hernia without obstruction or gangrene; K29.80 Duodenitis without bleeding; Z85.038 Personal history of other malignant neoplasm of large intestine; Z98.0 Intestinal bypass and anastomosis status; K21.9 Gastro-esophageal reflux disease without esophagitis
CPT/HCPCS: 45380; 45385; 43239; 88305; J7120; J2405

== ENCOUNTER → 2023-10-30 | Outpatient (CLI) | payer MEDICARE, OTHER, SELFPAY ==
--- NOTE | 2023-10-30 14:11 | CT_ITS ---
STUDY: CT ABDOMEN AND PELVIS WITH CONTRAST REASON FOR EXAM: Female, 68 years old. 09.16.23 CT OSH twisted stomach RADIATION DOSAGE (If Supplied By Facility): CTDIvol = ( 10.03 ) mGy, DLP = ( 314.74 ) mGycm TECHNIQUE: Transaxial images were obtained from the dome of the diaphragm to the symphysis pubis without oral contrast. IV 100mL Isovue-300 was administered. Sagittal and coronal images were reconstructed. Individualized dose optimization techniques were used for this CT. COMPARISON: None. FINDINGS: The visualized lung bases are unremarkable. The visualized portions of the heart are within normal limits. Normal liver. Normal gallbladder and extrahepatic biliary system. Normal spleen. Normal pancreas. Normal bilateral adrenal glands. Normal right kidney. Normal left kidney. Normal visualized stomach. Normal small intestine. Large amount of fecal material is seen in the colon. Surgical anastomosis is seen at the level of the rectum.` There is non-visualization of the appendix. Normal abdominal aorta. Normal inferior vena cava. Normal retroperitoneum. Normal urinary bladder. There is absence of the uterus consistent with a prior hysterectomy. Normal abdominal wall. There are mild degenerative changes of the visualized lumbar spine. Levoscoliosis. CT/Abdomen/Pelvis WITH Contrast IMPRESSION: Large amount of fecal material is seen in the colon. Surgical anastomosis is seen at the level of the rectum. Electronically Signed: Xavier Ferris MD at 8:53 EDT ,
[2023-10-30 14:41] LABS: CREATININE FINGERSTICK < 1.0 mg/dL (0.55-1.02); EGFR FINGERSTICK > 60.0000 mL/min (>60)
== END | disposition home or self-care (01) ==
LOC: CT 14:10
PROVIDERS: PCP Family Medicine; Referring Provider Internal Medicine Gastroenterology; Visit Provider Internal Medicine Gastroenterology
DX: K56.609 Unspecified intestinal obstruction, unspecified as to partial versus complete obstruction (principal)
CPT/HCPCS: 74177; Q9967

== ENCOUNTER → 2025-03-17 | Outpatient (CLI) | payer MEDICARE, OTHER, SELFPAY ==
[2025-03-20 08:13] LABS: Pancreatic Elastase, Fecal 414 (>200)
== END | disposition home or self-care (01) ==
LOC: LABSPEC 16:26
PROVIDERS: PCP Family Medicine; Referring Provider Student in an Organized Health Care Education/Training Program; Visit Provider Student in an Organized Health Care Education/Training Program
DX: R19.7 Diarrhea, unspecified (principal)
CPT/HCPCS: 82653